=== PATIENT | female | born 1985 | race Caucasian/White ===

== ENCOUNTER 2021-10-24 10:36 | Outpatient (CLI) | payer BC, SELFPAY ==
--- NOTE | 2021-10-24 09:45 | CRLHL7_ITS ---
For Patients: As a result of the Century Cures Act, medical imaging exams and procedure reports are released immediately into your electronic medical record. You may view this report before your referring provider. If you have questions, please contact your health care provider. INDICATION: Bleeding TECHNIQUE: Real-time jorge-scale imaging of the pelvis was performed. FINDINGS: Sonographic imaging demonstrates a single living intrauterine gestation. The embryo demonstrates a regular cardiac rate measuring 131 beats per minute. The embryo`s crown-rump length measurement of 0.9 cm corresponds to a gestational age of 6 weeks 6 days with a sonographic due date of 06/13/2022 . There is a normal-appearing yolk sac. Ovaries appear unremarkable corpus luteum cyst in the right ovary. Small subchorionic hemorrhage measuring 1.2 x 0.4 x 0.7 cm. IMPRESSION: Early intrauterine with crown-rump length measuring 0.9 cm corresponding to 6 weeks 6 days with BENITO of 06/13/2022. Small subchorionic hemorrhage measuring 1.2 x 0.4 x 0.7 cm. Dictated by Clarice Urbina MD @ 10/24/2021 12:05:30 PM (Electronically Signed)
== END 2021-10-24 10:37 | disposition home or self-care (01) ==
LOC: US 10:36
PROVIDERS: PCP Advanced Practice Midwife; Visit Provider Advanced Practice Midwife
DX: O20.9 Hemorrhage in early pregnancy, unspecified (principal); Z3A.01 Less than 8 weeks gestation of pregnancy
CPT/HCPCS: 76817